=== PATIENT | female | born 1995 | race Two or more races ===

== ENCOUNTER → 2022-09-24 15:22 | Outpatient (CLI) | payer BC, SELFPAY ==
--- NOTE | ~2022-09-24 | US_ITS ---
EXAMINATION: US OB transvaginal DATE: 09/24/2022 16:00 INDICATION: First trimester viability assessment TECHNIQUE: Real-time pelvic transabdominal and transvaginal ultrasound was performed. COMPARISON: None. FINDINGS: The uterus measures 9.2 x 4.8 x 5.2 cm. There is an intrauterine gestational sac. A yolk s ac is identified. heart motion is identified measuring 146 beats per minute (bpm) by M-mode Dop pler. The crown rump length measures 1.1 cm, which correlates with an estimated gestational age of 7 weeks and 2 day(s) (+/-) 5 day(s). The right ovary measures 3.7 x 2.5 x 2.3 cm. The left ovary measures 2.6 x 2.0 x 2.8 cm. There is nor mal vascular flow in the ovaries. There is no free fluid in the pelvis. IMPRESSION: 1. Live intrauterine with an estimated gestational age of 7 weeks and 2 day(s) (+/-) 5 day( s) and an estimated delivery date of 05/11/2023. Reviewed, dictated and finalized at location A. [facility] IMPRESSION: 1. Live intrauterine with an estimated gestational age of 7 weeks and 2 day(s) (+/-) 5 day(s) and an estimated delivery date of 05/11/2023.
== END ==
PROVIDERS: PCP Obstetrics & Gynecology Gynecology; Visit Provider Advanced Practice Midwife
DX: O36.80X0 Pregnancy with inconclusive fetal viability, not applicable or unspecified (principal); Z3A.01 Less than 8 weeks gestation of pregnancy
CPT/HCPCS: 76817

== ENCOUNTER → 2022-12-14 11:19 | Outpatient (CLI) | payer BC, SELFPAY ==
--- NOTE | ~2022-12-14 | US_ITS ---
EXAMINATION: US OB /maternal detail DATE: 12/14/2022 12:13 INDICATION: survey TECHNIQUE: Multiple obstetric sonographic images performed. FINDINGS: Comparison ultrasound dated 09/24/2022 There is a single living fetus in breech presentation. The placenta is fundal without placenta previ a. Placental margin is 7.3 cm to the cervix. Cervical length is 3.2 cm. Amniotic fluid volume is subj ectively normal. cardiac activity and movement is noted with a heart rate of 144 beats per minute. The following anatomy was identified as normal: 4 chamber heart 3 vessel cord cord insertion kidneys urinary bladder stomach spine diaphragm ventricles cisterna magna cerebellum The following biometric data were obtained: BPD: 42mm corresponds to gestational age 18 weeks 5 days. Head circumference: 160 mm corresponds to gestational age 18 weeks 6 days. Abdominal circumference: 137 mm corresponds to gestational age 19 weeks 1 days. Femur length: 27 mm corresponds to gestational age 18 weeks 2 days. Head circumference to abdominal circumference ratio: 1.17 (normal range for expected gestational age is 1.09-1.26). Estimated weight: 255 grams +/- 38 grams using Hadlock method. IMPRESSION: 1: Single living intrauterine with an estimated gestational age of 18weeks 6days by initial ultrasound measurements, with an EDC of 05/11/2023 in breech presentation. 2. Normal survey. Reviewed, dictated and finalized at location L. [facility] [facility] IMPRESSION: 1: Single living intrauterine with an estimated gestational age of 18 weeks 6days by initial ultrasound measurements, with an EDC of 05/11/2023 in leanna ech presentation. 2. Normal survey.
== END ==
PROVIDERS: PCP Obstetrics & Gynecology Gynecology; Visit Provider Obstetrics & Gynecology Gynecology
DX: Z36.9 Encounter for antenatal screening, unspecified (principal)
CPT/HCPCS: 76805

== ENCOUNTER → 2023-02-18 14:10 | Outpatient (CLI) | payer BC, SELFPAY ==
--- NOTE | ~2023-02-18 | US_ITS ---
EXAMINATION: US OB follow up DATE: 02/18/2023 14:34 INDICATION: Size greater than dates. TECHNIQUE: Real-time ultrasound of the pelvis was performed. COMPARISON: Ultrasound 12/14/2022, 09/24/2022 FINDINGS: There is a single living fetus in vertex presentation. The placenta is fundal. heart rate is 1 52 beats per minute (bpm). The cervical length is 3.1 cm on transabdominal images, which is normal. T he amniotic fluid index is 13.9 cm, which is normal. The following biometric data were obtained: Biparietal diameter (BPD): 7.2 cm; head circumference (HC): 26.9 cm; abdominal circumference (AC): 24 .3 cm; femur length (FL): 5.3 cm. These measurements are concordant. Estimated weight is 1246 g +/- 187 g, which correlates with the 47th percentile when 05/11/23 is used as estimated date of delivery. As single measurements, these parameters are each equal to the following estimated gestational ages: BPD: 29 weeks 0 days. HC: 29 weeks 2 days. AC: 28 weeks 4 days. FL: 28 weeks 2 days. estimated gestational age based solely on measurements from this exam is 28 weeks 6 days +/- 2 weeks 0 days. IMPRESSION: 1. Single living fetus in vertex presentation. 2. Estimated weight is 1246 g +/- 187 g, which correlates with the 47th percentile when 3 is used as estimated date of delivery. This date was set by ultrasound on 09/24/2022. Reviewed, dictated and finalized at location A. IMPRESSION: 1. Single living fetus in vertex presentation. 2. Estimated weight is 1246 g +/- 187 g, which correlates with the 47th percentile when 05/11/23 is used as estimated date of delivery. This date was se t by ultrasound on 09/24/2022.
== END ==
PROVIDERS: PCP Advanced Practice Midwife; Visit Provider Advanced Practice Midwife
DX: O36.63X0 Maternal care for excessive fetal growth, third trimester, not applicable or unspecified (principal); Z3A.28 28 weeks gestation of pregnancy
CPT/HCPCS: 76816

== ENCOUNTER 2023-04-20 13:18 | Inpatient (IN) | payer BC, SELFPAY ==
[2023-04-20] VITALS (11 sets, daily range): BP systolic 95–143; BP diastolic 65–91; PULSE 88–142; TEMP 36.5–36.7; BMI 37.8
--- NOTE | 2023-04-20 13:18 | LDADM ---
This patient, Mirna Gonzales, was admitted to Labor/Delivery/Recovery 106 on 04/20/23 at 13:18. Plans for labor, pain management and were discussed with patient. Patient/family oriented to hospital policies and general routines including ID bracelet, bed and alarms, visiting hours, pain management, procedures, bathroom and other care routines, personal items, smoking policy, room service/diet and guest tray routines, security routines, and visiting hours. Patient/Family are encouraged to report perceived risks to care and to ask questions if they do not understand what they are told or what they should do. See OBIX for further documentation.
[2023-04-20 14:10] LABS: Basophils Percent Auto 0.1 % (0.2-1.2); Eosinophils Absolute Auto 0.1 K/mm3 (0-0.3); Eosinophils Percent Auto 0.9 % (0-4.4); Hematocrit 35.5 % (37.0-47.0); Hemoglobin 11.7 g/dL (12.0-15.0); Immature Granulocyte Absolute 0.03 K/mm3 (0.00-0.031); Immature Granulocyte Percent A 0.4 % (0-0.5); Lymphocytes Absolute Auto 1.78 K/mm3 (0.9-3.2); Lymphocytes Percent Auto 23.2 % (18.3-44.2); Mean Corpuscular Hemoglobin 28.5 pg (26-34); Mean Corpuscular Volume 86.4 fl (80-100); Mean Platelet Volume 10.1 fl (7.4-10.4); Monocytes Absolute Auto 0.5 K/mm3 (0.1-0.6); Neutrophils Absolute Auto 5.3 K/mm3 (1.3-6.7); Neutrophils Percent Auto 69.4 % (45.5-73.1); Platelet Count Result 248 k/mm3 (150-375); Red Blood Count 4.11 M/mm3 (4.2-5.4); Red Cell Distribution Width 14.2 % (11.5-14.5); White Blood Count 7.7 K/mm3 (4.5-10.0)
[2023-04-20 14:18] LABS: Alanine Aminotransferase 15 U/L (6-35); Albumin Level 3.6 g/dL (3.5-5.1); Alkaline Phosphatase 176 U/L (38-126); Anion Gap 8 mmol/L (8-16); Aspartate Amino Transferase 19 U/L (14-36); Bilirubin,Total 0.3 mg/dL (0.2-1.3); Blood Urea Nitrogen 4 mg/dL (7-17); Carbon Dioxide 19 mmol/L (22-30); Chloride 109 mmol/L (98-107); Estimated Glomerular Filt Rate > 60; Glucose 79 mg/dL (65-110); Potassium 3.8 mmol/L (3.4-5.0); Sodium 136 mmol/L (137-145)
[2023-04-20 14:21] LABS: Uric Acid 3.8 mg/dL (2.5-7.5)
[2023-04-20] MEDS: miSOPROStol 25 MCG TABLET BY MOUTH ×2 (14:43→20:02)
--- NOTE | 2023-04-20 16:37 | WPDANESEPP ---
Anes - Eval Pre Procedure Procedure: labor epidural Date/Time: 04/20/23 16:37 Pre Op Diagnosis: IOL Patient Data Age: 27 Gender: F Height: 1.6 m Weight: 97 kg Last Vital Signs Pulse 93 04/20/23 16:30 BP 125/91 H 04/20/23 16:30 Allergies Allergy/AdvReac Type Severity Reaction Status Date / Time Penicillins Allergy Mild Other Verified 04/11/19 09:08 Home Medications Medication Instructions Recorded Confirmed Type aspirin 81 mg chewable tablet 81 mg PO DAILY 04/20/23 04/20/23 History cetirizine 10 mg capsule (Zyrtec) 10 mg PO DAILY PRN Allergy Symptoms 04/20/23 04/20/23 History ergocalciferol (vitamin D2) 1,250 50,000 unit PO WEEKLY 04/20/23 04/20/23 History mcg (50,000 unit) capsule metformin 500 mg tablet,extended 500 mg PO BID 04/20/23 04/20/23 History release 24 hr Laboratory Tests 04/20/23 13:58 WBC 7.7 K/mm3 (4.5-10.0) RBC 4.11 L M/mm3 (4.2-5.4) Hgb 11.7 L g/dL (12.0-15.0) Hct 35.5 L % (37.0-47.0) MCV 86.4 fl (80-100) MCH 28.5 pg (26-34) MCHC 33.0 g/dl (32-36) RDW 14.2 % (11.5-14.5) Plt Count 248 k/mm3 (150-375) MPV 10.1 fl (7.4-10.4) Immature Gran % (Auto) 0.4 % (0-0.5) Neut % (Auto) 69.4 % (45.5-73.1) Lymph % (Auto) 23.2 % (18.3-44.2) [place] % (Auto) 6.0 % (2.6-8.5) Eos % (Auto) 0.9 % (0-4.4) Baso % (Auto) 0.1 L % (0.2-1.2) Lymph # (Auto) 1.78 K/mm3 (0.9-3.2) [place] # (Auto) 0.5 K/mm3 (0.1-0.6) Eos # (Auto) 0.1 K/mm3 (0-0.3) Baso # (Auto) 0.0 K/mm3 (0.0-0.1) Abs Immat Gran (auto) 0.03 K/mm3 (0.00-0.031) Absolute Neuts (auto) 5.3 K/mm3 (1.3-6.7) Absolute Nucleated RBC 0.0 K/mm3 (0.0-0.012) Nucleated RBC % 0.0 % (0.0-0.2) Sodium 136 L mmol/L (137-145) Potassium 3.8 mmol/L (3.4-5.0) Chloride 109 H mmol/L (98-107) Carbon Dioxide 19 L mmol/L (22-30) Anion Gap 8 mmol/L (8-16) BUN 4 L mg/dL (7-17) Creatinine 0.50 L mg/dL (0.7-1.0) Estim Creat Clear Calc Not Reportable Estimated GFR > 60 (59 - ) Glucose 79 mg/dL (65-110) Uric Acid 3.8 mg/dL (2.5-7.5) Calcium 9.0 mg/dL (8.4-10.2) Total Bilirubin 0.3 mg/dL (0.2-1.3) AST 19 U/L (14-36) ALT 15 U/L (6-35) Alkaline Phosphatase 176 H U/L (38-126) Total Protein 7.0 g/dL (6.3-8.2) Albumin 3.6 g/dL (3.5-5.1) RPR Pending Blood Type A Positive Antibody Screen Negative Patient hx anesthesia problems: none Family hx anesthesia problems: none Results Review: All pre-operative results and documents have been reviewed as part of the pre-operative evaluation. [facility] Past Medical History Medical History (Updated 04/20/23 @ 16:39 by Lexie Hawkins CRNA) Asthma Obese Pre-eclampsia during in third trimester, antepartum Social History Social History Smoking status: Never smoker Substance use: never Lack of Transportation: No Lack of Food: Never True Current Housing: I Have Housing Concerned About Future Housing: No Difficulty Paying Gas/Electric Bills: No Difficulty Paying for Meds: No Currently Unemployed: No Education: Bachelor's Degree Difficulty w/ Childcare or Family Care: No Spiritual care concerns: No Exam Day of Procedure 04/20/23 16:37 Patient weight: obese Heart: regular rate and rhythm Lungs: clear to auscultation Airway: Mallampati scale
[2023-04-20] MEDS: metFORMIN HCL 500 MG TABLET PO (21:17)
[2023-04-21] VITALS (169 sets, daily range): BP systolic 101–149; BP diastolic 54–99; PULSE 69–113; TEMP 36.2–36.9; O2SAT 96–100
[2023-04-21] MEDS: miSOPROStol 25 MCG TABLET BY MOUTH (00:11)
[2023-04-21] MEDS: LACTATED RINGERS 1,000 ML 125 ML IV CONT ×3 (04:35→20:21)
[2023-04-21] MEDS: OXYTOCIN 30 UNITS/NS 500 ML 30 UNITS/500 ML BAG 6 UNITS IV CONT (04:36)
--- NOTE | 2023-04-21 07:55 | WPDOBADMIT ---
Obstetrics - Admit Note Admission Note: record reviewed. No pertinent additions to the history and/or any subsequent changes in the physical findings that are not consistent with the expected course of the were found. Additions to the history and/or subsequent changes in the physical findings follow. Admitted from office for [facility] with severe range BP and preeclampsia. Cytotec x 3 and now pitocin. Cervix FT/50/-2 firm still. Will recheck at lunch and attempt AROM if more favorable. VSS. No PIH sx. FHTs category I
[2023-04-21] MEDS: metFORMIN HCL 500 MG TABLET PO ×2 (08:07→22:22)
[2023-04-21 11:35] LABS: Rapid Plasma Reagin Non-Reactive (NonReactive)
--- NOTE | 2023-04-21 13:02 | PM.OBPNLAB ---
Pain Control Date/time seen: 04/21/23 13:02 Pain control: tolerating well Pelvic Exam Dilation (cm): 1 Effacement (%): 50 station: -2 Amniotic membrane status: Ruptured (AROM clear fluid) Contractions Contraction pattern: Irregular Status status: Category l Assessment and Plan Assessment: induction ongoing
[2023-04-22] VITALS (274 sets, daily range): BP systolic 89–146; BP diastolic 32–96; PULSE 69–146; RESP 16–19; TEMP 36.7–37.7; O2SAT 93–100
[2023-04-22] MEDS: SODIUM CHLORIDE 0.9% IV 300 ML 600 ML I-UTERINE ×2 (00:54→02:48)
[2023-04-22] MEDS: SODIUM CHLORIDE 0.9% IV 1,000 ML 150 ML I-UTERINE (03:20)
[2023-04-22] MEDS: LACTATED RINGERS 1,000 ML 125 ML IV CONT (04:29)
[2023-04-22] MEDS: OXYTOCIN 30 UNITS/NS 500 ML 30 UNITS/500 ML BAG IV CONT (07:16)
[2023-04-22] MEDS: ceFAZolin 2 GM/D5W 50 ML 2 GM/50 ML BAG IVPB (07:16)
--- NOTE | 2023-04-22 07:37 | PM.OBPNLAB ---
Pain Control Date/time seen: 04/22/23 07:37 Pain control: tolerating well Pelvic Exam Dilation (cm): 4 (4-5) Effacement (%): 70 station: -2 Amniotic membrane status: Ruptured (AROM clear fluid) Comments: caput Contractions Contraction pattern: Irregular Status status: Category l Comments: category II on and off through night resolved with position changes, amnioinfusion, and pitocin changes Assessment and Plan Assessment: induction ongoing
[2023-04-22] MEDS: metFORMIN HCL 500 MG TABLET PO (08:53)
[2023-04-22] MEDS: ceFAZolin 1 GM/NS 50 ML 1 GM/50 ML BAG IVPB (15:08)
[2023-04-22] MEDS: OXYTOCIN 30 UNITS/NS 500 ML 30 UNITS/500 ML BAG 125 UNITS IV CONT (17:00)
[2023-04-22] MEDS: WITCH HAZEL 40 PADS 1 PAD TOPICAL (18:30)
[2023-04-22] MEDS: BENZOCAINE 20% AER SPR (*SP) 56 GM CAN 1 SPRAY TOPICAL (18:30)
[2023-04-22] MEDS: IBUPROFEN 600 MG TABLET PO (18:51)
--- NOTE | 2023-04-22 19:10 | PC.NURSE ---
Patient transferred to post room #286 via wheelchair. Support person present. Oriented to unit, room, information board, rooming in, admission packet and security measures. Patient verbalizes understanding.
--- NOTE | 2023-04-23 00:37 | PM.OBPRVD ---
OB - Delivery Note Procedure Delivery date: 04/22/23 Procedure: Events: Preeclampsia w severe features (BP severe range in office) Intrapartal Events: Decelerations Induction method: AROM, Per Misoprostol Protocol and Per Pitocin Protocol Delivery monitor: External FHT and Internal Uterine Route of delivery: Laceration Description: Perineal - 2nd Degree Delivery repair: vicryl (3-0) Specimen: Yes (placenta) Quantitative Blood Loss (ml): 250 Anesthesia type: Epidural Disposition: Floor [place] Baby Date of : 04/22/23 Weeks of gestation at delivery: 37 gender: Male presentation: vertex position: Right Occiput Anterior Placenta delivery description: Spontaneous Cord Vessel Description: 3 Vessels
--- NOTE | 2023-04-23 00:39 | PM.OBDSVD ---
DS: Admitting Diagnosis Discharge Date 04/24/23 Admitting Diagnosis intrauterine at 37 weeks with preeclampsia with severe features for medical induction of labor DS: Discharge Diagnosis Discharge Diagnosis (1) (normal spontaneous vaginal delivery): Code(s): O80 - Encounter for full-term uncomplicated delivery Status: Acute OB - DS: Summary OB Procedures : NST, PIH Mgmt and Ultrasound OB Procedures Intrapartum: Spontaneous Vag Delivery OB Procedures: : None Peripartum Data Delivery Method: Natural Vaginal Laceration Description: Perineal - 2nd Degree complications: none Status at Discharge Functional status at discharge: independent ambulation Overall status at discharge: patient is progressing back to baseline Time Spent with Patient Time attestation: Total time spent providing and/or coordinating discharge services: DS: Data Data Completed and Pending Pending studies at discharge: Pending at discharge 04/22/23 17:17 Surgical [PTH] Routine Discharge Plan Discharge Attending physician on discharge: Sidra Montes Discharging Clinician: Sidra Montes Anticipated Discharge Date/Time: 04/24/23 00:41 Patient Disposition: Home, Self-Care Activity: may shower and pelvic rest Diet: regular Patient Instructions: Antibiotic Form Stand Alone Forms: General Discharge Information Follow-up/Referrals: Sidra Montes MD [Physician] - 1 Week ( and 6 week) Discharge Medications: Continued ergocalciferol (vitamin D2) 1,250 mcg (50,000 unit) capsule 50,000 unit PO WEEKLY Rx Instructions: Mondays metformin 500 mg tablet extended release 24 hr 500 mg PO BID Zyrtec 10 mg Capsule 10 mg PO DAILY PRN (Reason: Allergy Symptoms) Discontinued aspirin [Baby Aspirin] 81 mg Tablet,Chewable 81 mg PO DAILY Date of admission: 04/20/23 13:18 Primary Care Provider: Doris Carroll Admitting Provider: Sidra Montes Attending physician on admission: Sidra Montes Condition: Stable Care Plan Goals: Plans condoms and considering IUD
[2023-04-23] MEDS: IBUPROFEN 600 MG TABLET PO (03:28)
[2023-04-23 04:30] VITALS: BP 123/83; PULSE 77; RESP 16; TEMP 36.7; O2SAT 100
[2023-04-23 04:30] LABS: Hematocrit 33.3 % (37.0-47.0); Hemoglobin 10.7 g/dL (12.0-15.0)
[2023-04-23 08:15] VITALS: BP 108/71; PULSE 89; RESP 16; TEMP 36.6; O2SAT 99
--- NOTE | 2023-04-23 08:27 | PM.OBPNVD ---
OB - PN: Subj Subjective Date/time seen: 04/23/23 08:27 Interval history: No PIH sx Patient comments: no complaints and pain well controlled Thelma baby status: doing well OB - PN: Obj Data Labs 04/23/23 03:29 04/20/23 13:58 Labs: Laboratory Results - last 24 hr 04/23/23 03:29 Hgb 10.7 L Hct 33.3 L OB - PN A/P Plan day: 1 Plan: routine care Comments: No PIH sx. BP good Time Spent With Patient Time: Total time spent is greater than 50% in coordination of care (as documented) at patient's floor/unit and/or counseling patient: Exam : Bimanual exam- vagina & uterus: other (Uterus firm, nt @U)
[2023-04-23] MEDS: ACETAMINOPHEN 325 MG TABLET 650 MG PO ×2 (08:57→15:46)
[2023-04-23] MEDS: MULTIVIT/MIN/PREN/FOL AC/IRON TABLET 1 TAB PO (08:57)
[2023-04-23] MEDS: DOCUSATE SODIUM 100 MG CAPSULE PO (08:57)
[2023-04-23 12:20] VITALS: BP 121/76
[2023-04-23 15:40] VITALS: BP 127/88; PULSE 83; RESP 16; TEMP 36.5; O2SAT 98
[2023-04-23 20:25] VITALS: BP 120/73; PULSE 99; RESP 16; TEMP 36.5; O2SAT 97
[2023-04-23 23:20] VITALS: BP 130/84; PULSE 102; RESP 18; TEMP 36.8; O2SAT 98
[2023-04-24] MEDS: ACETAMINOPHEN 325 MG TABLET 650 MG PO (00:36)
[2023-04-24] MEDS: IBUPROFEN 600 MG TABLET PO ×2 (00:36→11:45)
[2023-04-24 03:36] VITALS: BP 101/66
--- NOTE | 2023-04-24 08:12 | P.PNOB_ITS ---
OB - PN: Subj Subjective Date/time seen: 04/24/23 08:12 Interval history: No PIH sx Patient comments: no complaints and pain well controlled [place] baby status: doing well OB - PN: Obj Data Labs 04/23/23 03:29 04/20/23 13:58 OB - PN A/P Assessment and Plan (1) Pre-eclampsia during in third trimester, antepartum: Code(s): O14.93 - Unspecified pre-eclampsia, third trimester Status: Acute Assessment and Plan: BP normal. No symptoms. Follow up 1 week Plan day: 2 Plan: routine care and discharge home Time Spent With Patient Time: Total time spent is greater than 50% in coordination of care (as documented) at patient's floor/unit and/or counseling patient: Exam : Bimanual exam- vagina & uterus: other (Uterus firm, nt @U)
[2023-04-24 11:45] VITALS: BP 121/78; PULSE 99; RESP 14; TEMP 36.3; O2SAT 98
[2023-04-24] MEDS: MULTIVIT/MIN/PREN/FOL AC/IRON TABLET 1 TAB PO (11:45)
[2023-04-25 08:36] VITALS: BP 138/89; PULSE 87; RESP 18; TEMP 36.4; O2SAT 100
== END 2023-04-24 19:10 | disposition home or self-care (01) | DRG 807 ==
LOC: ANHLDR 04-21 09:15 → ANHOB2 04-22 19:12
PROVIDERS: Admitting Provider Obstetrics & Gynecology Gynecology; PCP Advanced Practice Midwife; Visit Provider Obstetrics & Gynecology Gynecology
DX: O14.14 Severe pre-eclampsia complicating childbirth (principal); Z37.0 Single live birth; O69.81X0 Labor and delivery complicated by cord around neck, without compression, not applicable or unspecified; O76 Abnormality in fetal heart rate and rhythm complicating labor and delivery; O70.1 Second degree perineal laceration during delivery; Z3A.37 37 weeks gestation of pregnancy
CPT/HCPCS: 36415; 80053; 84550; 85014; 85018; 85025; 86592; 86850; 86900; 86901; 88307; A9270; J0690; J2590; J2795; J7030; J7120